=== PATIENT | male | born 1945 | race Caucasian/White ===

== ENCOUNTER 2018-07-07 23:36 | Inpatient (IN) | payer MEDICARE ==
[~2018-07-07] VITALS: Ht 185.4 cm; Wt 115.1 kg
[~2018-07-07 23:36] MED LIST: CIPR500T87 PO; LISI5TAB7 PO
--- NOTE | 2018-07-07 23:36 | NUR ---
Pt brought in by EMS from [facility], as a transfer for sepsis. Per EMS, initial temperature taken at [facility] was 93.6 F. Pt medicated in [facility] with 3L NS and started on a Levophed drip at 7mcg/min, vanco running during transport completed upon arrival to [facility] ED. Per, transportation agent, pt was c/o pain to B/L legs and sacrum so a ketamine drip at 50mg/15mins was infusing during transport. Upon arrival to ED, pt not answering any questions, moans as pain response, opens eyes to touch, and localizes to pain. Pt moved onto waffle mattress, on weighted bed, and placed on all monitors. HR noted to be in the 140s-150s, EKG done upon arrival to ED. Levophed stopped to reassess need.
[2018-07-08] MEDS ORDERED: DILTIAZEM 5 MG/ML, 5ML ONE (00:02)
--- NOTE | 2018-07-08 00:07 | NUR ---
Pt medicated, per AUG, with cardizem, pt's HR initially dropped from 140s-150s to 110s though it quickly increased to 130s-140s and sustained. Dr. Mclean made aware and plan to redose at 0015 if no change.
--- NOTE | 2018-07-08 00:15 | NUR ---
Pt moved to T3, report given to Jose SINGH. XR at bedside. Lab at bedside, 2nd dose of cardizem to be given by Jose SINGH.
[2018-07-08] MEDS ORDERED: DILTIAZEM 5 MG/ML, 5ML IVPush ONE (00:30)
[2018-07-08] MEDS ORDERED: SODIUM CHLORIDE 0.9% 1,000ML IVBOLUS ONE (00:30)
[2018-07-08] MEDS ORDERED: PLEASE ENTER ALLERGIES MC SCH (00:30)
[2018-07-08 00:39] LABS: ALANINE AMINOTRANSFERASE 29 U/L (12-78); ALBUMIN 1.8 g/dL (3.4-5.0); ANION GAP 18 mmol/L (5-15); CALCIUM 8.5 mg/dL (8.5-10.1); CHLORIDE 105 mmol/L (98-107); CREATININE 9.03 mg/dL (0.7-1.3)
[2018-07-08 00:44] LABS: ALKALINE PHOSPHATASE 216 U/L (45-117); BILIRUBIN,TOTAL 4.6 mg/dL (0.2-1.0); TOTAL PROTEIN 6.2 g/dL (6.4-8.2); TROPONIN I < 0.015 ng/mL (0.000-0.045)
[2018-07-08 00:57] LABS: MEAN CORPUSCULAR HEMOGLOBIN 28.1 pg (27.5-34.5); MEAN CORPUSCULAR HGB CONC 34.1 g/dL (33.2-36.2); MEAN CORPUSCULAR VOLUME 82.2 fL (81-97); MEAN PLATELET VOLUME 11.3 fL (7.4-10.4); RED BLOOD COUNT 5.43 x10^6/uL (4.38-5.82); RED CELL DISTRIBUTION WIDTH 17.9 % (9.4-14.8)
[2018-07-08 01:00] LABS: PLATELET COUNT 31 x10^3/uL (130-400)
[2018-07-08] MEDS ORDERED: DILTIAZEM 125 MG in SODIUM CHLORIDE 0.9% 100 ML IV PRN (01:00)
[2018-07-08 01:01] LABS: MD YES
[2018-07-08 01:04] LABS: ANISOCYTOSIS 1+; BAND#(MANUAL) 0.31 x10^3/uL; BANDS%(MANUAL) 1 % (0-7); LYMPH#(MANUAL) 0.63 x10^3/uL (1-3.4); LYMPHS% (MANUAL) 2 % (22-44); METAMYELOCYTES# (MANUAL) 0.31 x10^3/uL (0-0); METAMYELOCYTES% (MANUAL) 1 % (0-1); MONOS#(MANUAL) 1.25 x10^3/uL (0.3-2.7); MONOS% (MANUAL) 4 % (2-9); REACTIVE LYMPHS # (MANUAL) 0.31 x10^3/uL (0-0); REACTIVE LYMPHS % (MANUAL) 1 % (0-0); SEG#(MANUAL) 28.48 x10^3/uL (1.8-6.8); SEGS% (MANUAL) 91 % (42-75)
[2018-07-08 01:05] LABS: <PLATELET ESTIMATE> DECREASED; GIANT PLATELETS 1+; LARGE PLATELETS 1+; PMNS WITH VACUOLES 1+; TOXIC GRAN 1+
--- NOTE | 2018-07-08 01:28 | NUR ---
PT BACK FROM CT SCAN. PT AWAIKE AND NOW A/O X 3
[2018-07-08] MEDS: SODIUM BICARBONATE 8.4% 150 MEQ in DEXTROSE 5% 1,000 ML IV SCH ×2 (01:58→11:48)
--- NOTE | 2018-07-08 02:05 | NUR ---
PT WITH IV MEDS RUNNING ORDERED. PT NOW VERBAL BUT STILL NOT ABLE TO CONVERSE WITH RN. PT WAS A/O X 3 NOW.
--- NOTE | 2018-07-08 03:18 | NUR ---
PT ASLEEP IV MEDS RUNNING ORDERED. PT HR REMAINS IRREGULAR AND BP AT TIMES LOW. PT STILL A/O X 3.
--- NOTE | 2018-07-08 03:57 | NUR ---
PT ASLEEP WITH NO DISTRESS. HR REMAINS IRREGULAR
--- NOTE | 2018-07-08 04:23 | NUR ---
TITRATED DILT DRIP TO 15 MG /HR PT WITH HR AT 135 STILL
--- NOTE | 2018-07-08 04:56 | NUR ---
ADMIT MS TO BEDSIDE AWAITING ORDERS AND CCU ADMIT.
[2018-07-08] MEDS ORDERED: DOCUSATE 100 MG CAPSULE PO PRN (05:30)
[2018-07-08] MEDS ORDERED: ONDANSETRON 2MG/ML, 2ML IVPush PRN (05:30)
[2018-07-08] MEDS ORDERED: LABETALOL 5MG/ML, 20ML IVPush PRN (05:30)
[2018-07-08] MEDS ORDERED: hydrALAzine 20 MG/ML, 1ML IVPush PRN (05:30)
[2018-07-08] MEDS ORDERED: HEPARIN 5,000 UNITS/ML, 1ML SQ SCH (05:30)
[2018-07-08] MEDS ORDERED: POLYETHYLENE GLYCOL 17 GM PACKET PO PRN (05:30)
[2018-07-08] MEDS ORDERED: morphine SULFATE 10 MG/ML, 1ML IVPush PRN (05:30)
[2018-07-08] MEDS ORDERED: ONDANSETRON ODT 4 MG PO PRN (05:30)
[2018-07-08] MEDS ORDERED: OXYcodone IR 5MG TABLET PO PRN (05:30)
[2018-07-08] MEDS ORDERED: PROMETHAZINE 25 MG/ML, 1ML IM PRN (05:30)
[2018-07-08] MEDS ORDERED: BISACODYL 10 MG SUPP PR PRN (05:30)
--- NOTE | 2018-07-08 05:48 | NUR ---
DAUGHTER TO ARRIVE AT 0830ish TODAY. DAUGHTER REPORTS HAVING PT'S MEDICAL HX.
[2018-07-08 06:24] LABS: MEAN CORPUSCULAR HEMOGLOBIN 28.2 pg (27.5-34.5); MEAN CORPUSCULAR HGB CONC 33.9 g/dL (33.2-36.2); MEAN CORPUSCULAR VOLUME 83.1 fL (81-97); RED CELL DISTRIBUTION WIDTH 17.6 % (9.4-14.8)
--- NOTE | 2018-07-08 06:31 | NUR ---
PT AWAKE AND A/O X 3. PT WITH RAPID IRG HR AT 100 - 130. PT REMAINS ON CARDIZEN DRIP AT 15MG/HR. PT IS ON A CCU HOLD AWAITING A CCU BED.
[2018-07-08 06:33] LABS: CHLORIDE 106 mmol/L (98-107)
[2018-07-08 06:48] LABS: MEAN PLATELET VOLUME 11.4 fL (7.4-10.4)
[2018-07-08 06:49] LABS: ALANINE AMINOTRANSFERASE 24 U/L (12-78); ALBUMIN 1.6 g/dL (3.4-5.0); ALKALINE PHOSPHATASE 187 U/L (45-117); ANION GAP 16 mmol/L (5-15); BILIRUBIN,TOTAL 4.6 mg/dL (0.2-1.0); CALCIUM 8.4 mg/dL (8.5-10.1); CREATININE 9.02 mg/dL (0.7-1.3); FREE T4 (FREE THYROXINE) 0.67 ng/dL (0.76-1.46); MD YES; PLATELET COUNT 25 x10^3/uL (130-400); TOTAL PROTEIN 5.9 g/dL (6.4-8.2)
[2018-07-08 06:51] LABS: BAND#(MANUAL) 0.25 x10^3/uL; BANDS%(MANUAL) 1 % (0-7); LYMPH#(MANUAL) 0.25 x10^3/uL (1-3.4); LYMPHS% (MANUAL) 1 % (22-44); MONOS#(MANUAL) 1.26 x10^3/uL (0.3-2.7); MONOS% (MANUAL) 5 % (2-9); SEG#(MANUAL) 23.44 x10^3/uL (1.8-6.8); SEGS% (MANUAL) 93 % (42-75)
[2018-07-08 06:52] LABS: PMNS WITH VACUOLES 1+; TOXIC GRAN 1+
[2018-07-08 06:53] LABS: <PLATELET ESTIMATE> DECREASED; ANISOCYTOSIS 1+; GIANT PLATELETS 1+; LARGE PLATELETS 1+
[2018-07-08] MEDS ORDERED: HEPARIN 5,000 UNITS/ML, 1ML ONE (06:57)
[2018-07-08] MEDS ORDERED: PIPERACILLIN/TAZO 2.25 GM in SODIUM CHLORIDE 0.9% 50 ML IV SCH (07:00)
--- NOTE | 2018-07-08 07:00 | NUR ---
bedside report from marly Garcia, pt care assumed at this time. Pt in bed, NAD, awaiting CCU bed
[2018-07-08 07:03] LABS: HEMOGLOBIN A1C 7.4 % (4.2-6.3)
--- NOTE | 2018-07-08 07:25 | NUR ---
MD Duenas notified of BUN & PLT, verbal order to hold heparin
--- NOTE | 2018-07-08 08:30 | NUR ---
PT ROLLED & PLACED ON CLEAN LINENS, GIVEN MOUTH SWABS
--- NOTE | 2018-07-08 09:40 | NUR ---
ATTEMPTING TO CALL REPORT TO FRANSISCA RN IN ICU AT THIS TIME
[2018-07-08 11:24] LABS: CREATININE,URINE RANDOM 71.6 mg/dL
[2018-07-08] MEDS: DILTIAZEM 125 MG in SODIUM CHLORIDE 0.9% 100 ML IV PRN ×2 (11:48→19:45)
[2018-07-08 11:56] VITALS: BP 95/55
[2018-07-08] MEDS: PIPERACILLIN/TAZO/PMX 2.25GM 50 ML IVPB SCH ×2 (15:20→23:20)
[2018-07-08] MEDS ORDERED: DAPTOMYCIN 600 MG in SODIUM CHLORIDE 0.9% 100 ML IVPB SCH (20:00)
[2018-07-08] MEDS: ALBUTEROL/IPRATROPIUM 2.5MG/0.5MG, 3 ML NPPB SCH (20:20)
[2018-07-08] MEDS ORDERED: MORPHINE SULFATE 4 MG/ML, 1ML ONE (22:56)
[2018-07-09 00:32] LABS: CULTURE INDICATED? YES; MICROSCOPIC INDICATED
[2018-07-09 04:42] LABS: MEAN CORPUSCULAR HEMOGLOBIN 27.3 pg (27.5-34.5); MEAN CORPUSCULAR VOLUME 82.8 fL (81-97); MEAN PLATELET VOLUME 10.7 fL (7.4-10.4); RED BLOOD COUNT 5.08 x10^6/uL (4.38-5.82); RED CELL DISTRIBUTION WIDTH 17.5 % (9.4-14.8)
[2018-07-09 04:47] LABS: PLATELET COUNT 29 x10^3/uL (130-400)
[2018-07-09 04:59] LABS: ANION GAP 15 mmol/L (5-15); CHLORIDE 102 mmol/L (98-107)
[2018-07-09 05:06] LABS: BASOPHILS # (AUTO) 0.34 x10^3/uL (0-0.1); BASOPHILS % (AUTO) 1 % (0-1); EOSINOPHILS # (AUTO) 0.03 x10^3/uL (0-0.4); EOSINOPHILS % (AUTO) 0 % (1-7); LYMPHOCYTES # (AUTO) 0.54 x10^3/uL (1-3.4); LYMPHOCYTES % (AUTO) 2 % (22-44); MD SCAN; MONOCYTES # (AUTO) 0.22 x10^3/uL (0.2-0.8); MONOCYTES % (AUTO) 1 % (2-9); NEUTROPHILS # (AUTO) 24.89 x10^3/uL (1.8-6.8); NEUTROPHILS % (AUTO) 96 % (42-75)
[2018-07-09 05:12] LABS: ALANINE AMINOTRANSFERASE 26 U/L (12-78); ALBUMIN 1.5 g/dL (3.4-5.0); ALKALINE PHOSPHATASE 172 U/L (45-117); BILIRUBIN,TOTAL 4.2 mg/dL (0.2-1.0); CALCIUM 7.7 mg/dL (8.5-10.1); CHOL/HDL RATIO 11.6; CHOLESTEROL, TOTAL 116 mg/dL (140-239); CREATININE 7.13 mg/dL (0.7-1.3); HDL CHOL % 9 % (26-37); HDL CHOLESTEROL (DIRECT) 10 mg/dL (40-60); LDL CHOLESTEROL,CALCULATED 61 mg/dL (54-169); LDL/HDL RATIO 6.1 (0.5-3.0); TOTAL PROTEIN 5.8 g/dL (6.4-8.2); TRIGLYCERIDES 224 mg/dL (50-200); VLDL CHOLESTEROL 45 mg/dL (0-25)
[2018-07-09] MEDS: DILTIAZEM 125 MG in SODIUM CHLORIDE 0.9% 100 ML IV PRN ×2 (06:29→18:57)
[2018-07-09] MEDS: PIPERACILLIN/TAZO/PMX 2.25GM 50 ML IVPB SCH ×3 (06:29→23:17)
[2018-07-09] MEDS: ALBUTEROL/IPRATROPIUM 2.5MG/0.5MG, 3 ML NPPB SCH ×4 (07:30→20:20)
[2018-07-09] MEDS: INSULIN LISPRO 100 UNITS/ML, PEN SQ-INSULIN SCH ×3 (11:00→21:18)
[2018-07-09 12:39] LABS: HEMOGLOBIN A1C 7.8 % (4.2-6.3)
[2018-07-09] MEDS: PANTOPRAZOLE 40 MG IV IVPush SCH (14:48)
[2018-07-10] MEDS: PIPERACILLIN/TAZO/PMX 2.25GM 50 ML IVPB SCH ×2 (06:31→20:15)
[2018-07-10] MEDS: INSULIN LISPRO 100 UNITS/ML, PEN SQ-INSULIN SCH ×4 (06:46→20:19)
[2018-07-10 07:07] LABS: ALBUMIN 1.5 g/dL (3.4-5.0); ANION GAP 11 mmol/L (5-15); CHLORIDE 103 mmol/L (98-107)
[2018-07-10 07:11] LABS: ALANINE AMINOTRANSFERASE 21 U/L (12-78); ALKALINE PHOSPHATASE 155 U/L (45-117); BILIRUBIN,TOTAL 7.1 mg/dL (0.2-1.0); CREATININE 5.49 mg/dL (0.7-1.3)
[2018-07-10 07:22] LABS: MD YES; MEAN CORPUSCULAR HEMOGLOBIN 27.4 pg (27.5-34.5); MEAN CORPUSCULAR HGB CONC 33.4 g/dL (33.2-36.2); MEAN CORPUSCULAR VOLUME 81.9 fL (81-97); MEAN PLATELET VOLUME 9.8 fL (7.4-10.4); RED BLOOD COUNT 4.64 x10^6/uL (4.38-5.82); RED CELL DISTRIBUTION WIDTH 17.6 % (9.4-14.8)
[2018-07-10 07:29] LABS: BAND#(MANUAL) 0.22 x10^3/uL; BANDS%(MANUAL) 1 % (0-7); LYMPH#(MANUAL) 0.22 x10^3/uL (1-3.4); LYMPHS% (MANUAL) 1 % (22-44); MONOS#(MANUAL) 0.44 x10^3/uL (0.3-2.7); MONOS% (MANUAL) 2 % (2-9); SEG#(MANUAL) 21.31 x10^3/uL (1.8-6.8); SEGS% (MANUAL) 96 % (42-75)
[2018-07-10 07:30] LABS: <PLATELET ESTIMATE> DECREASED; ANISOCYTOSIS 1+; GIANT PLATELETS 1+; LARGE PLATELETS 1+
[2018-07-10 07:32] LABS: PLATELET COUNT 42 x10^3/uL (130-400)
[2018-07-10] MEDS ORDERED: AMIODARONE 150 MG in DEXTROSE 5% 100 ML IVPB ONE (07:44)
[2018-07-10] MEDS ORDERED: FILTER 0.22 MICRON IV PRN (08:00)
[2018-07-10] MEDS: ALBUTEROL/IPRATROPIUM 2.5MG/0.5MG, 3 ML NPPB SCH (08:00)
[2018-07-10] MEDS: AMIODARONE 900 MG in DEXTROSE 5% 482 ML IV PRN (08:29)
--- NOTE | 2018-07-10 10:03 | NUR ---
REC: Regular diet with thin liquids Addendum: 07/10/18 at 1004 by Keisha JENKINS Amended: Links added.
[2018-07-10] MEDS: PANTOPRAZOLE 40 MG IV IVPush SCH (10:08)
[2018-07-10 13:32] VITALS: BP 115/73
[2018-07-10 13:37] LABS: MD YES; MEAN CORPUSCULAR HEMOGLOBIN 27.3 pg (27.5-34.5); MEAN CORPUSCULAR HGB CONC 33.6 g/dL (33.2-36.2); MEAN CORPUSCULAR VOLUME 81.5 fL (81-97); MEAN PLATELET VOLUME 10.2 fL (7.4-10.4)
[2018-07-10 13:39] LABS: PLATELET COUNT 39 x10^3/uL (130-400)
[2018-07-10 13:41] LABS: BAND#(MANUAL) 0.63 x10^3/uL; BANDS%(MANUAL) 3 % (0-7); LYMPH#(MANUAL) 0.21 x10^3/uL (1-3.4); LYMPHS% (MANUAL) 1 % (22-44); MONOS#(MANUAL) 0.42 x10^3/uL (0.3-2.7); MONOS% (MANUAL) 2 % (2-9); SEG#(MANUAL) 19.83 x10^3/uL (1.8-6.8); SEGS% (MANUAL) 94 % (42-75)
[2018-07-10 13:42] LABS: <PLATELET ESTIMATE> DECREASED; ANISOCYTOSIS 1+
[2018-07-10 13:43] LABS: LARGE PLATELETS 1+
[2018-07-10 21:09] VITALS: BP 106/64
[2018-07-10] MEDS ORDERED: DILTIAZEM 5 MG/ML, 5ML IVPush ONE (23:00)
[2018-07-10 23:56] VITALS: BP 101/58
[2018-07-11 01:03] VITALS: BP 114/71
[2018-07-11] MEDS: PIPERACILLIN/TAZO/PMX 2.25GM 50 ML IVPB SCH ×2 (04:05→12:14)
[2018-07-11 05:51] LABS: ANION GAP 11 mmol/L (5-15); CALCIUM 7.9 mg/dL (8.5-10.1); CHLORIDE 101 mmol/L (98-107); CREATININE 4.16 mg/dL (0.7-1.3)
[2018-07-11 05:58] LABS: MEAN CORPUSCULAR HEMOGLOBIN 28.4 pg (27.5-34.5); MEAN CORPUSCULAR HGB CONC 34.9 g/dL (33.2-36.2); MEAN CORPUSCULAR VOLUME 81.3 fL (81-97); RED BLOOD COUNT 4.48 x10^6/uL (4.38-5.82); RED CELL DISTRIBUTION WIDTH 16.7 % (9.4-14.8)
[2018-07-11 06:36] LABS: PLATELET COUNT 43 x10^3/uL (130-400)
[2018-07-11 06:38] LABS: MD YES
[2018-07-11 06:40] LABS: LYMPH#(MANUAL) 0.83 x10^3/uL (1-3.4); LYMPHS% (MANUAL) 4 % (22-44); MONOS#(MANUAL) 0.42 x10^3/uL (0.3-2.7); MONOS% (MANUAL) 2 % (2-9); MYELOCYTES# (MANUAL) 0.21 x10^3/uL (0-0); MYELOCYTES% (MANUAL) 1 % (0-0); REACTIVE LYMPHS # (MANUAL) 0.21 x10^3/uL (0-0); REACTIVE LYMPHS % (MANUAL) 1 % (0-0)
[2018-07-11 06:41] LABS: BAND#(MANUAL) 0.21 x10^3/uL; BANDS%(MANUAL) 1 % (0-7); SEGS% (MANUAL) 91 % (42-75)
[2018-07-11 06:43] LABS: ANISOCYTOSIS 1+
[2018-07-11 06:44] LABS: <PLATELET ESTIMATE> DECREASED; LARGE PLATELETS 1+; TARGET CELLS 1+
[2018-07-11 06:56] VITALS: BP 113/78
[2018-07-11] MEDS ORDERED: ACETAMINOPHEN 325 MG TABLET PO PRN (08:00)
[2018-07-11] MEDS ORDERED: ALBUTEROL/IPRATROPIUM 2.5MG/0.5MG, 3 ML NPPB SCH (08:30)
[2018-07-11] MEDS: AMIODARONE 900 MG in DEXTROSE 5% 482 ML IV PRN (09:38)
[2018-07-11] MEDS: SODIUM CHLORIDE 0.9% 1,000 ML IV SCH ×2 (09:38→21:39)
[2018-07-11] MEDS: PANTOPRAZOLE 40 MG IV IVPush SCH (09:41)
[2018-07-11] MEDS: LACTOBACILLUS CHEW TABLET PO SCH ×3 (09:41→21:35)
[2018-07-11] MEDS: CARVEDILOL 6.25 MG TABLET PO SCH ×2 (09:41→18:10)
[2018-07-11] MEDS: INSULIN LISPRO 100 UNITS/ML, PEN SQ-INSULIN SCH ×4 (09:43→21:36)
[2018-07-11 13:30] VITALS: BP 113/63
[2018-07-11] MEDS: MEROPENEM 500 MG in SODIUM CHLORIDE 0.9% 100 ML IV SCH (14:17)
[2018-07-11 16:15] LABS: ANA SCREEN NEGATIVE (Negative)
[2018-07-11] MEDS ORDERED: FUROSEMIDE 20 MG/2 ML IV ONE (20:00)
[2018-07-11 20:58] VITALS: BP 103/59
[2018-07-11] MEDS: GUAIFENESIN 200 MG TABLET PO SCH (21:35)
[2018-07-12] MEDS: MEROPENEM 500 MG in SODIUM CHLORIDE 0.9% 100 ML IV SCH ×2 (02:15→14:31)
[2018-07-12 04:56] VITALS: BP 92/62
[2018-07-12] MEDS: CARVEDILOL 6.25 MG TABLET PO SCH ×2 (06:09→17:49)
[2018-07-12 06:17] LABS: MEAN CORPUSCULAR HEMOGLOBIN 28.3 pg (27.5-34.5); MEAN CORPUSCULAR HGB CONC 34.3 g/dL (33.2-36.2); MEAN CORPUSCULAR VOLUME 82.5 fL (81-97); PLATELET COUNT 60 x10^3/uL (130-400); RED BLOOD COUNT 4.37 x10^6/uL (4.38-5.82); RED CELL DISTRIBUTION WIDTH 17.2 % (9.4-14.8)
[2018-07-12 06:24] LABS: ANION GAP 11 mmol/L (5-15); CALCIUM 7.9 mg/dL (8.5-10.1); CHLORIDE 103 mmol/L (98-107); CREATININE 5.05 mg/dL (0.7-1.3)
[2018-07-12 06:35] LABS: BASOPHILS % (AUTO) 0 % (0-1); EOSINOPHILS # (AUTO) 0.11 x10^3/uL (0-0.4); EOSINOPHILS % (AUTO) 1 % (1-7); LYMPHOCYTES # (AUTO) 0.28 x10^3/uL (1-3.4); LYMPHOCYTES % (AUTO) 1 % (22-44); MD SCAN; MONOCYTES # (AUTO) 0.26 x10^3/uL (0.2-0.8); MONOCYTES % (AUTO) 1 % (2-9); NEUTROPHILS # (AUTO) 20.93 x10^3/uL (1.8-6.8); NEUTROPHILS % (AUTO) 97 % (42-75)
[2018-07-12] MEDS: INSULIN LISPRO 100 UNITS/ML, PEN SQ-INSULIN SCH ×4 (07:58→21:00)
[2018-07-12] MEDS: LACTOBACILLUS CHEW TABLET PO SCH ×3 (07:59→21:54)
[2018-07-12] MEDS: GUAIFENESIN 200 MG TABLET PO SCH ×2 (07:59→21:54)
[2018-07-12] MEDS: ERGOCALCIFEROL 50,000 UNIT CAPSULE PO SCH (11:01)
[2018-07-12 12:33] LABS: MEAN PLATELET VOLUME 9.2 fL (7.4-10.4)
[2018-07-12 14:13] VITALS: BP 104/67
[2018-07-12 16:37] LABS: OCCULT BLOOD POSITIVE (NEGATIVE)
[2018-07-12 16:57] LABS: CLOSTRIDIUM DIFFICILE ANTIGEN NEGATIVE; CLOSTRIDIUM DIFFICILE TOXIN NEGATIVE (Negative)
[2018-07-12] MEDS: SODIUM CHLORIDE 0.9% 1,000 ML IV SCH (17:49)
[2018-07-12] MEDS: AMIODARONE 200 MG TABLET PO SCH (21:54)
[2018-07-12 21:55] VITALS: BP 108/68
[2018-07-13] MEDS: MEROPENEM 500 MG in SODIUM CHLORIDE 0.9% 100 ML IV SCH ×2 (01:44→13:44)
[2018-07-13 01:56] VITALS: BP 119/72
[2018-07-13 05:19] VITALS: BP 109/69
[2018-07-13 05:25] LABS: MEAN CORPUSCULAR HEMOGLOBIN 27.8 pg (27.5-34.5); MEAN CORPUSCULAR VOLUME 81.8 fL (81-97); MEAN PLATELET VOLUME 10.6 fL (7.4-10.4); NEUTROPHILS % (AUTO) 97 % (42-75); PLATELET COUNT 113 x10^3/uL (130-400); RED BLOOD COUNT 4.45 x10^6/uL (4.38-5.82); RED CELL DISTRIBUTION WIDTH 16.6 % (9.4-14.8)
[2018-07-13 05:31] LABS: ALBUMIN 1.4 g/dL (3.4-5.0); ANION GAP 9 mmol/L (5-15); CALCIUM 8.1 mg/dL (8.5-10.1); CHLORIDE 101 mmol/L (98-107)
[2018-07-13 05:35] LABS: ALANINE AMINOTRANSFERASE 21 U/L (12-78); ALKALINE PHOSPHATASE 156 U/L (45-117); BILIRUBIN,TOTAL 7.5 mg/dL (0.2-1.0); CREATININE 4.12 mg/dL (0.7-1.3); TOTAL PROTEIN 6.4 g/dL (6.4-8.2)
[2018-07-13] MEDS: CARVEDILOL 6.25 MG TABLET PO SCH ×2 (05:36→16:54)
[2018-07-13 05:50] LABS: MD SCAN
[2018-07-13 06:39] VITALS: BP 93/58
[2018-07-13] MEDS ORDERED: PANTOPROZOLE 40MG TABLET PO SCH (08:00)
[2018-07-13] MEDS: AMIODARONE 200 MG TABLET PO SCH ×2 (09:38→21:24)
[2018-07-13] MEDS: LACTOBACILLUS CHEW TABLET PO SCH ×3 (09:39→21:24)
[2018-07-13] MEDS: GUAIFENESIN 200 MG TABLET PO SCH ×2 (09:39→21:24)
[2018-07-13] MEDS: INSULIN LISPRO 100 UNITS/ML, PEN SQ-INSULIN SCH ×4 (09:40→21:25)
[2018-07-13] MEDS ORDERED: PANTOPRAZOLE 40 MG IV IVPush SCH (13:30)
[2018-07-13 13:31] VITALS: BP 114/64
[2018-07-13] MEDS: SODIUM CHLORIDE 0.9% 1,000 ML IV SCH (13:44)
[2018-07-13] MEDS: PANTOPROZOLE 40MG TABLET PO SCH (13:52)
[2018-07-13 14:05] LABS: INTERNATIONAL NORMALIZED RATIO 1.17 (0.93-1.1); PROTHROMBIN TIME 12.3 Seconds (9.6-11.5)
[2018-07-13] MEDS: CEFTRIAXONE PMX 2GM/50ML 50 ML IV SCH (17:22)
[2018-07-13 19:00] VITALS: BP 101/62
[2018-07-14 01:07] VITALS: BP 118/74
[2018-07-14] MEDS: CARVEDILOL 6.25 MG TABLET PO SCH ×2 (05:18→17:48)
[2018-07-14] MEDS: PANTOPROZOLE 40MG TABLET PO SCH ×2 (05:18→17:48)
[2018-07-14 05:55] LABS: MEAN CORPUSCULAR HEMOGLOBIN 28.1 pg (27.5-34.5); MEAN CORPUSCULAR HGB CONC 34.5 g/dL (33.2-36.2); MEAN CORPUSCULAR VOLUME 81.6 fL (81-97); MEAN PLATELET VOLUME 10.6 fL (7.4-10.4); PLATELET COUNT 123 x10^3/uL (130-400); RED BLOOD COUNT 4.32 x10^6/uL (4.38-5.82); RED CELL DISTRIBUTION WIDTH 17.1 % (9.4-14.8)
[2018-07-14 05:58] LABS: CHLORIDE 103 mmol/L (98-107)
[2018-07-14 05:59] LABS: BASOPHILS % (AUTO) 0 % (0-1); EOSINOPHILS # (AUTO) 0.11 x10^3/uL (0-0.4); EOSINOPHILS % (AUTO) 1 % (1-7); LYMPHOCYTES # (AUTO) 0.37 x10^3/uL (1-3.4); LYMPHOCYTES % (AUTO) 2 % (22-44); MD SCAN; MONOCYTES # (AUTO) 0.42 x10^3/uL (0.2-0.8); MONOCYTES % (AUTO) 2 % (2-9); NEUTROPHILS # (AUTO) 16.72 x10^3/uL (1.8-6.8); NEUTROPHILS % (AUTO) 95 % (42-75)
[2018-07-14 06:07] LABS: ALANINE AMINOTRANSFERASE 20 U/L (12-78); ALBUMIN 1.4 g/dL (3.4-5.0); ALKALINE PHOSPHATASE 147 U/L (45-117); ANION GAP 10 mmol/L (5-15); CREATININE 4.39 mg/dL (0.7-1.3); TOTAL PROTEIN 6.5 g/dL (6.4-8.2)
[2018-07-14] MEDS: SODIUM CHLORIDE 0.9% 1,000 ML IV SCH (06:40)
[2018-07-14] MEDS: INSULIN LISPRO 100 UNITS/ML, PEN SQ-INSULIN SCH ×4 (07:00→21:24)
[2018-07-14 07:02] VITALS: BP 104/64
[2018-07-14] MEDS: LACTOBACILLUS CHEW TABLET PO SCH ×3 (08:48→21:24)
[2018-07-14] MEDS: AMIODARONE 200 MG TABLET PO SCH ×2 (08:48→21:24)
[2018-07-14] MEDS: GUAIFENESIN 200 MG TABLET PO SCH ×2 (08:48→21:24)
[2018-07-14 12:56] VITALS: BP 98/67
[2018-07-14] MEDS ORDERED: PROPOFOL 10 MG/ML, 20ML ONE (14:04)
[2018-07-14] MEDS: CEFTRIAXONE PMX 2GM/50ML 50 ML IV SCH (15:53)
[2018-07-14 19:28] VITALS: BP 91/64
[2018-07-15 01:08] VITALS: BP 112/76
[2018-07-15] MEDS: SODIUM CHLORIDE 0.9% 1,000 ML IV SCH (01:21)
[2018-07-15] MEDS: PANTOPROZOLE 40MG TABLET PO SCH ×2 (05:27→17:20)
[2018-07-15] MEDS: CARVEDILOL 6.25 MG TABLET PO SCH ×2 (05:27→17:20)
[2018-07-15 06:02] LABS: MEAN CORPUSCULAR HEMOGLOBIN 28.1 pg (27.5-34.5); MEAN CORPUSCULAR HGB CONC 34.2 g/dL (33.2-36.2); MEAN CORPUSCULAR VOLUME 82.3 fL (81-97); MEAN PLATELET VOLUME 11.6 fL (7.4-10.4); PLATELET COUNT 149 x10^3/uL (130-400); RED BLOOD COUNT 4.18 x10^6/uL (4.38-5.82); RED CELL DISTRIBUTION WIDTH 17.1 % (9.4-14.8)
[2018-07-15 06:11] LABS: CHLORIDE 107 mmol/L (98-107)
[2018-07-15 06:17] LABS: ALANINE AMINOTRANSFERASE 20 U/L (12-78); ALBUMIN 1.4 g/dL (3.4-5.0); ALKALINE PHOSPHATASE 149 U/L (45-117); ANION GAP 11 mmol/L (5-15); BILIRUBIN,TOTAL 4.6 mg/dL (0.2-1.0); CALCIUM 8.3 mg/dL (8.5-10.1); CREATININE 4.48 mg/dL (0.7-1.3); TOTAL PROTEIN 6.3 g/dL (6.4-8.2)
[2018-07-15 06:24] LABS: BASOPHILS % (AUTO) 0 % (0-1); EOSINOPHILS # (AUTO) 0.08 x10^3/uL (0-0.4); EOSINOPHILS % (AUTO) 0 % (1-7); LYMPHOCYTES # (AUTO) 0.44 x10^3/uL (1-3.4); LYMPHOCYTES % (AUTO) 2 % (22-44); MD SCAN; MONOCYTES # (AUTO) 0.51 x10^3/uL (0.2-0.8); MONOCYTES % (AUTO) 3 % (2-9); NEUTROPHILS # (AUTO) 17.75 x10^3/uL (1.8-6.8); NEUTROPHILS % (AUTO) 94 % (42-75)
[2018-07-15 06:33] VITALS: BP 98/77
[2018-07-15] MEDS: INSULIN LISPRO 100 UNITS/ML, PEN SQ-INSULIN SCH ×4 (07:00→22:10)
[2018-07-15] MEDS: LACTOBACILLUS CHEW TABLET PO SCH ×3 (07:59→22:10)
[2018-07-15] MEDS: AMIODARONE 200 MG TABLET PO SCH ×2 (07:59→22:10)
[2018-07-15] MEDS: GUAIFENESIN 200 MG TABLET PO SCH ×2 (07:59→22:10)
[2018-07-15 13:45] VITALS: BP 93/58
[2018-07-15] MEDS: CEFTRIAXONE PMX 2GM/50ML 50 ML IV SCH (17:20)
[2018-07-15 18:58] VITALS: BP 97/61
[2018-07-16 01:04] VITALS: BP 112/80
[2018-07-16] MEDS: SODIUM CHLORIDE 0.9% 1,000 ML IV SCH (02:53)
[2018-07-16] MEDS: CARVEDILOL 6.25 MG TABLET PO SCH ×2 (05:28→18:26)
[2018-07-16] MEDS: PANTOPROZOLE 40MG TABLET PO SCH ×2 (05:28→16:53)
[2018-07-16 06:07] LABS: MEAN CORPUSCULAR HEMOGLOBIN 28.5 pg (27.5-34.5); MEAN CORPUSCULAR HGB CONC 34.6 g/dL (33.2-36.2); MEAN CORPUSCULAR VOLUME 82.6 fL (81-97); PLATELET COUNT 151 x10^3/uL (130-400); RED BLOOD COUNT 3.73 x10^6/uL (4.38-5.82)
[2018-07-16 06:19] LABS: ALANINE AMINOTRANSFERASE 22 U/L (12-78); ALBUMIN 1.4 g/dL (3.4-5.0); ANION GAP 9 mmol/L (5-15); CALCIUM 7.9 mg/dL (8.5-10.1); CHLORIDE 109 mmol/L (98-107); CREATININE 4.29 mg/dL (0.7-1.3)
[2018-07-16 06:22] LABS: ALKALINE PHOSPHATASE 142 U/L (45-117); BILIRUBIN,TOTAL 3.3 mg/dL (0.2-1.0); TOTAL PROTEIN 6.3 g/dL (6.4-8.2)
[2018-07-16 06:30] LABS: BASOPHILS % (AUTO) 0 % (0-1); EOSINOPHILS # (AUTO) 0.08 x10^3/uL (0-0.4); EOSINOPHILS % (AUTO) 0 % (1-7); LYMPHOCYTES # (AUTO) 0.47 x10^3/uL (1-3.4); LYMPHOCYTES % (AUTO) 2 % (22-44); MD SCAN; MONOCYTES # (AUTO) 0.62 x10^3/uL (0.2-0.8); MONOCYTES % (AUTO) 3 % (2-9); NEUTROPHILS % (AUTO) 94 % (42-75)
[2018-07-16 06:59] VITALS: BP 110/72
[2018-07-16] MEDS: INSULIN LISPRO 100 UNITS/ML, PEN SQ-INSULIN SCH ×4 (07:00→20:20)
[2018-07-16] MEDS: AMIODARONE 200 MG TABLET PO SCH ×2 (08:47→20:19)
[2018-07-16] MEDS: LACTOBACILLUS CHEW TABLET PO SCH ×3 (08:47→20:19)
[2018-07-16] MEDS: GUAIFENESIN 200 MG TABLET PO SCH ×2 (08:47→20:19)
[2018-07-16 13:27] VITALS: BP 129/76
[2018-07-16] MEDS: CEFTRIAXONE PMX 2GM/50ML 50 ML IV SCH (16:55)
[2018-07-16 19:54] VITALS: BP 104/68
[2018-07-17 01:01] VITALS: BP 94/62
[2018-07-17] MEDS: SODIUM CHLORIDE 0.9% 1,000 ML IV SCH (03:17)
[2018-07-17 05:08] VITALS: BP 122/71
[2018-07-17] MEDS: PANTOPROZOLE 40MG TABLET PO SCH ×2 (05:10→18:27)
[2018-07-17] MEDS: CARVEDILOL 6.25 MG TABLET PO SCH (05:10)
[2018-07-17 05:48] LABS: ALANINE AMINOTRANSFERASE 28 U/L (12-78); ALBUMIN 1.4 g/dL (3.4-5.0); ANION GAP 10 mmol/L (5-15); BASOPHILS # (AUTO) 0.05 x10^3/uL (0-0.1); BASOPHILS % (AUTO) 0 % (0-1); CHLORIDE 109 mmol/L (98-107); CREATININE 3.87 mg/dL (0.7-1.3); EOSINOPHILS % (AUTO) 1 % (1-7); LYMPHOCYTES # (AUTO) 0.47 x10^3/uL (1-3.4); LYMPHOCYTES % (AUTO) 4 % (22-44); MD NO; MEAN CORPUSCULAR HEMOGLOBIN 28.4 pg (27.5-34.5); MEAN CORPUSCULAR HGB CONC 34.5 g/dL (33.2-36.2); MEAN CORPUSCULAR VOLUME 82.5 fL (81-97); MEAN PLATELET VOLUME 10.7 fL (7.4-10.4); MONOCYTES # (AUTO) 0.57 x10^3/uL (0.2-0.8); MONOCYTES % (AUTO) 4 % (2-9); NEUTROPHILS # (AUTO) 12.52 x10^3/uL (1.8-6.8); NEUTROPHILS % (AUTO) 91 % (42-75); PLATELET COUNT 169 x10^3/uL (130-400); RED BLOOD COUNT 3.44 x10^6/uL (4.38-5.82); RED CELL DISTRIBUTION WIDTH 17.1 % (9.4-14.8)
[2018-07-17 05:50] LABS: ALKALINE PHOSPHATASE 146 U/L (45-117); BILIRUBIN,TOTAL 2.6 mg/dL (0.2-1.0)
[2018-07-17] MEDS: INSULIN LISPRO 100 UNITS/ML, PEN SQ-INSULIN SCH ×4 (07:00→21:51)
[2018-07-17 07:13] VITALS: BP 118/79
[2018-07-17] MEDS: AMIODARONE 200 MG TABLET PO SCH ×2 (09:39→21:54)
[2018-07-17] MEDS: LACTOBACILLUS CHEW TABLET PO SCH ×3 (09:39→21:54)
[2018-07-17] MEDS: GUAIFENESIN 200 MG TABLET PO SCH ×2 (09:39→21:53)
[2018-07-17 13:28] VITALS: BP 120/69
[2018-07-17] MEDS: CARVEDILOL 3.125 MG TABLET PO SCH (18:27)
[2018-07-17 19:52] VITALS: BP 128/73
[2018-07-17] MEDS: CEFTRIAXONE PMX 2GM/50ML 50 ML IV SCH (21:44)
[2018-07-18 01:01] VITALS: BP 113/74
[2018-07-18] MEDS: SODIUM CHLORIDE 0.9% 1,000 ML IV SCH (01:27)
[2018-07-18 04:39] LABS: BASOPHILS % (AUTO) 0 % (0-1); EOSINOPHILS # (AUTO) 0.08 x10^3/uL (0-0.4); EOSINOPHILS % (AUTO) 1 % (1-7); LYMPHOCYTES # (AUTO) 0.48 x10^3/uL (1-3.4); LYMPHOCYTES % (AUTO) 4 % (22-44); MD NO; MEAN CORPUSCULAR HEMOGLOBIN 28.4 pg (27.5-34.5); MEAN CORPUSCULAR HGB CONC 34.2 g/dL (33.2-36.2); MEAN PLATELET VOLUME 10.3 fL (7.4-10.4); MONOCYTES # (AUTO) 0.53 x10^3/uL (0.2-0.8); MONOCYTES % (AUTO) 5 % (2-9); NEUTROPHILS # (AUTO) 10.15 x10^3/uL (1.8-6.8); NEUTROPHILS % (AUTO) 90 % (42-75); PLATELET COUNT 156 x10^3/uL (130-400); RED BLOOD COUNT 3.27 x10^6/uL (4.38-5.82); RED CELL DISTRIBUTION WIDTH 17.8 % (9.4-14.8)
[2018-07-18 04:47] LABS: ALANINE AMINOTRANSFERASE 28 U/L (12-78); ALBUMIN 1.3 g/dL (3.4-5.0); ANION GAP 6 mmol/L (5-15); CALCIUM 7.9 mg/dL (8.5-10.1); CHLORIDE 105 mmol/L (98-107); CREATININE 2.63 mg/dL (0.7-1.3)
[2018-07-18 04:50] LABS: ALKALINE PHOSPHATASE 137 U/L (45-117); BILIRUBIN,TOTAL 2.6 mg/dL (0.2-1.0)
[2018-07-18] MEDS: PANTOPROZOLE 40MG TABLET PO SCH ×2 (06:28→17:07)
[2018-07-18] MEDS: CARVEDILOL 3.125 MG TABLET PO SCH ×2 (06:28→17:08)
[2018-07-18 07:29] VITALS: BP 99/63
[2018-07-18] MEDS: INSULIN LISPRO 100 UNITS/ML, PEN SQ-INSULIN SCH ×4 (08:00→21:00)
[2018-07-18 09:15] VITALS: BP 96/59
[2018-07-18] MEDS: LACTOBACILLUS CHEW TABLET PO SCH ×3 (09:17→21:36)
[2018-07-18] MEDS: GUAIFENESIN 200 MG TABLET PO SCH ×2 (09:17→21:37)
[2018-07-18] MEDS: AMIODARONE 200 MG TABLET PO SCH ×2 (09:31→21:36)
[2018-07-18 13:19] VITALS: BP 106/72
[2018-07-18 17:08] VITALS: BP 114/71
[2018-07-18 19:33] VITALS: BP 98/63
[2018-07-18] MEDS: CEFTRIAXONE PMX 2GM/50ML 50 ML IV SCH (21:36)
[2018-07-19 01:18] VITALS: BP 104/65
[2018-07-19 05:55] LABS: BASOPHILS # (AUTO) 0.08 x10^3/uL (0-0.1); BASOPHILS % (AUTO) 1 % (0-1); EOSINOPHILS # (AUTO) 0.05 x10^3/uL (0-0.4); EOSINOPHILS % (AUTO) 1 % (1-7); LYMPHOCYTES % (AUTO) 5 % (22-44); MD NO; MEAN CORPUSCULAR HEMOGLOBIN 28.6 pg (27.5-34.5); MEAN CORPUSCULAR HGB CONC 34.4 g/dL (33.2-36.2); MEAN CORPUSCULAR VOLUME 83.2 fL (81-97); MEAN PLATELET VOLUME 9.8 fL (7.4-10.4); MONOCYTES % (AUTO) 5 % (2-9); NEUTROPHILS # (AUTO) 9.77 x10^3/uL (1.8-6.8); NEUTROPHILS % (AUTO) 88 % (42-75); PLATELET COUNT 168 x10^3/uL (130-400); RED BLOOD COUNT 3.29 x10^6/uL (4.38-5.82); RED CELL DISTRIBUTION WIDTH 18.2 % (9.4-14.8)
[2018-07-19 05:59] LABS: CALCIUM 8.2 mg/dL (8.5-10.1); CHLORIDE 108 mmol/L (98-107)
[2018-07-19 06:02] VITALS: BP 91/59
[2018-07-19 06:05] LABS: ALANINE AMINOTRANSFERASE 31 U/L (12-78); ALBUMIN 1.5 g/dL (3.4-5.0); ALKALINE PHOSPHATASE 142 U/L (45-117); ANION GAP 8 mmol/L (5-15); BILIRUBIN,TOTAL 2.2 mg/dL (0.2-1.0); CREATININE 3.05 mg/dL (0.7-1.3); TOTAL PROTEIN 6.8 g/dL (6.4-8.2)
[2018-07-19] MEDS: PANTOPROZOLE 40MG TABLET PO SCH ×2 (06:05→17:09)
[2018-07-19] MEDS: CARVEDILOL 3.125 MG TABLET PO SCH ×2 (06:05→17:09)
[2018-07-19] MEDS: INSULIN LISPRO 100 UNITS/ML, PEN SQ-INSULIN SCH ×4 (07:00→21:56)
[2018-07-19 07:08] VITALS: BP 103/65
[2018-07-19] MEDS: LACTOBACILLUS CHEW TABLET PO SCH ×3 (08:34→20:39)
[2018-07-19] MEDS: GUAIFENESIN 200 MG TABLET PO SCH ×2 (08:34→20:39)
[2018-07-19] MEDS: AMIODARONE 200 MG TABLET PO SCH ×2 (08:34→20:39)
[2018-07-19] MEDS: ERGOCALCIFEROL 50,000 UNIT CAPSULE PO SCH (08:38)
[2018-07-19 12:24] VITALS: BP 110/70
[2018-07-19 19:26] VITALS: BP 90/60
[2018-07-19] MEDS: CEFTRIAXONE PMX 2GM/50ML 50 ML IV SCH (20:39)
[2018-07-20 02:01] VITALS: BP 93/60
[2018-07-20] MEDS: CARVEDILOL 3.125 MG TABLET PO SCH (05:49)
[2018-07-20] MEDS: PANTOPROZOLE 40MG TABLET PO SCH (05:49)
[2018-07-20 06:23] LABS: POTASSIUM,URINE RANDOM 14 mmol/L; SODIUM,URINE RANDOM 31 mmol/L; TOTAL PROTEIN,URINE RANDOM 75 mg/dL (0-12)
[2018-07-20 06:24] LABS: CHLORIDE,URINE RANDOM < 10 mmol/L
[2018-07-20 06:41] LABS: MICROSCOPIC INDICATED
[2018-07-20] MEDS: INSULIN LISPRO 100 UNITS/ML, PEN SQ-INSULIN SCH ×2 (07:00→11:00)
[2018-07-20 07:56] VITALS: BP 95/62
[2018-07-20 08:26] LABS: BASOPHILS % (AUTO) 0 % (0-1); EOSINOPHILS % (AUTO) 1 % (1-7); HEMOGRAM NOTE RECHECKED; LYMPHOCYTES # (AUTO) 0.46 x10^3/uL (1-3.4); LYMPHOCYTES % (AUTO) 6 % (22-44); MD NO; MEAN CORPUSCULAR VOLUME 83.8 fL (81-97); MONOCYTES % (AUTO) 5 % (2-9); NEUTROPHILS # (AUTO) 7.01 x10^3/uL (1.8-6.8); NEUTROPHILS % (AUTO) 88 % (42-75); PLATELET COUNT 171 x10^3/uL (130-400)
[2018-07-20 08:28] LABS: ALANINE AMINOTRANSFERASE 33 U/L (12-78); ALBUMIN 1.4 g/dL (3.4-5.0); ANION GAP 10 mmol/L (5-15); CALCIUM 8.7 mg/dL (8.5-10.1); CHLORIDE 110 mmol/L (98-107); CREATININE 3.04 mg/dL (0.7-1.3)
[2018-07-20] MEDS ORDERED: LIDOCAINE 1%, 20ML ONE (08:28)
[2018-07-20 08:30] LABS: ALKALINE PHOSPHATASE 130 U/L (45-117); BILIRUBIN,TOTAL 1.6 mg/dL (0.2-1.0); TOTAL PROTEIN 6.1 g/dL (6.4-8.2)
[2018-07-20] MEDS ORDERED: FENTANYL PF 100 MCG/2ML ONE (09:40)
[2018-07-20] MEDS ORDERED: MIDAZOLAM 1 MG/ML, 5ML ONE (09:40)
[2018-07-20] MEDS ORDERED: ERGO500017 PO (10:20)
[2018-07-20] MEDS ORDERED: INSU100I11 SQ-INSULIN (10:20)
[2018-07-20] MEDS ORDERED: CARV3.1212 PO (10:20)
[2018-07-20] MEDS ORDERED: CEFT1FRO2 IV (10:21)
[2018-07-20] MEDS ORDERED: AMIO200T42 PO (10:30)
[2018-07-20] MEDS: GUAIFENESIN 200 MG TABLET PO SCH (11:39)
[2018-07-20] MEDS: LACTOBACILLUS CHEW TABLET PO SCH (11:39)
[2018-07-20] MEDS: AMIODARONE 200 MG TABLET PO SCH (11:40)
[2018-07-20 12:29] VITALS: BP 122/72
[2018-07-20 15:21] VITALS: BP 123/76
== END 2018-07-20 16:49 | DRG 871 ==
LOC: ED 07-08 00:25 → EDIP 07-08 01:32 → MERGE 07-08 01:32 → ICU 07-08 09:58 → 4EST 07-10 12:01 → 4WST 07-10 18:48
PROVIDERS: ADMIT Internal Medicine; ATTEND Internal Medicine
PROC: 02HV33Z Insertion of Infusion Device into Superior Vena Cava, Percutaneous Approach (ICD-10-PCS; 2018-07-08)
PROC: B548ZZA Ultrasonography of Superior Vena Cava, Guidance (ICD-10-PCS; 2018-07-08)
PROC: 5A1D70Z Performance of Urinary Filtration, Intermittent, Less than 6 Hours Per Day (ICD-10-PCS; 2018-07-08)
PROC: 5A1D70Z Performance of Urinary Filtration, Intermittent, Less than 6 Hours Per Day (ICD-10-PCS; 2018-07-09)
PROC: 5A1D70Z Performance of Urinary Filtration, Intermittent, Less than 6 Hours Per Day (ICD-10-PCS; 2018-07-10)
PROC: 5A1D70Z Performance of Urinary Filtration, Intermittent, Less than 6 Hours Per Day (ICD-10-PCS; 2018-07-12)
PROC: 0DJ08ZZ Inspection of Upper Intestinal Tract, Via Natural or Artificial Opening Endoscopic (ICD-10-PCS; principal; 2018-07-14 14:30)
PROC: 5A1D70Z Performance of Urinary Filtration, Intermittent, Less than 6 Hours Per Day (ICD-10-PCS; 2018-07-17)
PROC: 02HV33Z Insertion of Infusion Device into Superior Vena Cava, Percutaneous Approach (ICD-10-PCS; 2018-07-20)
PROC: B5181ZA Fluoroscopy of Superior Vena Cava using Low Osmolar Contrast, Guidance (ICD-10-PCS; 2018-07-20)
PROC: B548ZZA Ultrasonography of Superior Vena Cava, Guidance (ICD-10-PCS; 2018-07-20)
PROC: 0JH63XZ Insertion of Tunneled Vascular Access Device into Chest Subcutaneous Tissue and Fascia, Percutaneous Approach (ICD-10-PCS; 2018-07-20)
DX: A41.50 Gram-negative sepsis, unspecified (principal); N17.0 Acute kidney failure with tubular necrosis; J96.01 Acute respiratory failure with hypoxia; I50.43 Acute on chronic combined systolic (congestive) and diastolic (congestive) heart failure; E43 Unspecified severe protein-calorie malnutrition; G92 Toxic encephalopathy; K25.4 Chronic or unspecified gastric ulcer with hemorrhage; R65.21 Severe sepsis with septic shock; D69.3 Immune thrombocytopenic purpura; I13.0 Hypertensive heart and chronic kidney disease with heart failure and stage 1 through stage 4 chronic kidney disease, or unspecified chronic kidney disease; I42.9 Cardiomyopathy, unspecified; I48.92 Unspecified atrial flutter; L97.919 Non-pressure chronic ulcer of unspecified part of right lower leg with unspecified severity; L97.929 Non-pressure chronic ulcer of unspecified part of left lower leg with unspecified severity; L03.115 Cellulitis of right lower limb; L03.116 Cellulitis of left lower limb; N13.2 Hydronephrosis with renal and ureteral calculous obstruction; Z68.33 Body mass index [BMI] 33.0-33.9, adult; R53.81 Other malaise; R73.9 Hyperglycemia, unspecified; B96.1 Klebsiella pneumoniae [K. pneumoniae] as the cause of diseases classified elsewhere; D64.9 Anemia, unspecified; E21.3 Hyperparathyroidism, unspecified; E27.9 Disorder of adrenal gland, unspecified; E66.01 Morbid (severe) obesity due to excess calories; E87.5 Hyperkalemia; F17.210 Nicotine dependence, cigarettes, uncomplicated; I35.8 Other nonrheumatic aortic valve disorders; I44.7 Left bundle-branch block, unspecified; I48.91 Unspecified atrial fibrillation; K74.60 Unspecified cirrhosis of liver; M10.9 Gout, unspecified; M43.06 Spondylolysis, lumbar region; M47.816 Spondylosis without myelopathy or radiculopathy, lumbar region; N18.9 Chronic kidney disease, unspecified; Z85.46 Personal history of malignant neoplasm of prostate; Z85.51 Personal history of malignant neoplasm of bladder; Z93.6 Other artificial openings of urinary tract status
CPT/HCPCS: 36415; 36556; 36558; 71045; 74176; 76700; 76937; 77001; 80048; 80053; 80061; 81001; 82043; 82272; 82306; 82330; 82436; 82570; 82962; 83036; 83520; 83605; 83615; 83735; 83883; 83970; 84100; 84133; 84145; 84155; 84156; 84165; 84300; 84439; 84443; 84484; 84550; 85025; 85610; 85730; 86038; 86160; 86162; 86256; 86705; 86706; 86803; 87040; 87077; 87081; 87086; 87186; 87324; 87338; 87340; 93005; 93306; 93922; 93970; 94640; 96374; 96375; 96376; 99156; 99157; C1894; G0378; J0696; J0878; J2185; J2250; J2543; J2704; J3010; J3490; J7070; J7620; C1750; C1751; C1769; C9113; J0282; J1642; J1815; J2270; J7030; J7060